=== PATIENT | male | born 1985 | race Caucasian/White ===

== ENCOUNTER 2020-10-23 12:10 | Outpatient (REF) | payer BC, SELFPAY ==
[2020-10-24 20:07] LABS: Lyme Abs Screen <0.90 index
== END 2020-10-23 12:11 | disposition home or self-care (01) ==
LOC: HO.MANLDS 12:10
PROVIDERS: PCP Internal Medicine; Visit Provider Physician Assistant
DX: T14.8XXA Other injury of unspecified body region, initial encounter (principal)
CPT/HCPCS: 86618